=== PATIENT | male | born 1950 | race Caucasian/White ===

== ENCOUNTER 2021-07-11 04:44 | Inpatient (IN) | payer OTHER ==
[2021-07-11 04:53] VITALS: BMI 27.2
[2021-07-11 06:25] LABS: BLOOD UREA NITROGEN 27.5 mg/dL (7-18); CALCIUM 9.1 mg/dL (8.5-10.1)
[2021-07-11 06:26] LABS: ALBUMIN 3.8 g/dl (3.4-5.0)
[2021-07-11 06:28] LABS: CREATININE 1.1 mg/dL (0.55-1.3)
[2021-07-11 06:30] LABS: BILIRUBIN,TOTAL 0.4 mg/dL (0.2-1); TOT PROT 7.3 g/dl (6.4-8.2)
[2021-07-11 06:31] LABS: BASO % 0.9 % (0-2.0); EOS % 4.2 % (0-4.5); HEMATOCRIT 42.2 % (35.4-49); HEMOGLOBIN 13.7 GM/dL (11.7-16.9); LYMPH % 18.4 % (8-40); MCH 25.5 pg (25.7-33.7); MCHC 32.5 g/dl (32.0-35.9); MEAN CELL VOLUME 78.5 fl (80-96); MONO % 10.4 % (3.8-10.2); NEUT % 66.1 % (42.8-82.8); PLATELET COUNT 195 10^3/uL (134-434); RBC 5.38 M/mm3 (4.00-5.60); RDW 14.9 % (11.9-15.9); WHITE BLOOD COUNT 7.1 K/mm3 (4.0-10.0)
[2021-07-11] MEDS ORDERED: SODIUM CHLORIDE 1,000 ML IV ONE (06:51)
[2021-07-11] MEDS ORDERED: ASPIRIN 325 MG TABLET PO ONE (11:19)
[2021-07-11] MEDS ORDERED: ASPIRIN 325 MG TABLET ONE (11:32)
[2021-07-11] MEDS ORDERED: METOPROLOL TARTRATE 25 MG TABLET (FP) PO SCH (14:45)
[2021-07-11] MEDS ORDERED: ENOXAPARIN NA (PORCINE) 40 MG/0.4 ML DISP.SYRIN SQ SCH (15:15)
[2021-07-11] MEDS ORDERED: CLOPIDOGREL BISULFATE 75 MG TABLET (FP) PO ONE (17:28)
[2021-07-11] MEDS: ENOXAPARIN NA (PORCINE) 100 MG/1 ML DISP.SYRIN SQ SCH (20:24)
[2021-07-11] MEDS: ATORVASTATIN CA 40 MG TABLET (FP) PO SCH (21:24)
[2021-07-11] MEDS ORDERED: ATORVASTATIN CA 10 MG TABLET (FP) PO SCH (22:00)
[2021-07-12] MEDS: ENOXAPARIN NA (PORCINE) 100 MG/1 ML DISP.SYRIN SQ SCH ×2 (08:25→21:50)
[2021-07-12 08:32] LABS: ALBUMIN 3.7 g/dl (3.4-5.0); BILIRUBIN,TOTAL 0.7 mg/dl (0.2-1); CALCIUM 8.9 mg/dl (8.5-10); CREATININE 1.1 mg/dl (0.55-1.3); MAGNESIUM 1.8 mg/dL (1.8-2.4); TOT PROT 6.8 g/dl (6.4-8.2)
[2021-07-12 08:39] LABS: HEMATOCRIT 42.4 % (35.4-49); HEMOGLOBIN 14.3 G/dL (11.7-16.9); MCH 26.2 pg (25.7-33.7); MCHC 33.6 g/dl (32.0-35.9); MEAN CELL VOLUME 78.1 fl (80-96); MEAN PLT VOLUME 9.2 fl (7.5-11.1); PLATELET COUNT 194.2 10^3/uL (134-434); RBC 5.43 10^6/uL (4.00-5.60); RDW 15.4 % (11.9-15.9); WHITE BLOOD COUNT 9.4 10^3/uL (4.0-10.8)
[2021-07-12] MEDS: ASPIRIN 81 MG CHEWABLE TABLETS PO SCH (09:29)
[2021-07-12] MEDS: CLOPIDOGREL BISULFATE 75 MG TABLET (FP) PO SCH (09:29)
[2021-07-12] MEDS: metoPROLOL SUCCINATE 25 MG TAB.SR.24H (FP) PO SCH (09:29)
[2021-07-12] MEDS: RAMIPRIL 2.5 MG CAPSULE PO SCH (10:41)
[2021-07-12 11:13] LABS: N-TERMINAL BNP 291.5 pg/ml (5-125)
[2021-07-12] MEDS: ATORVASTATIN CA 40 MG TABLET (FP) PO SCH (21:50)
[2021-07-13] MEDS: RAMIPRIL 2.5 MG CAPSULE PO SCH (09:34)
[2021-07-13] MEDS: ENOXAPARIN NA (PORCINE) 100 MG/1 ML DISP.SYRIN SQ SCH (09:34)
[2021-07-13] MEDS ORDERED: REGADENOSON 0.4 MG/5 ML PRE-FILLED SYRINGE IVPUSH ONE ×2 (11:00→12:37)
[2021-07-13] MEDS: metoPROLOL SUCCINATE 25 MG TAB.SR.24H (FP) PO SCH (14:32)
[2021-07-13] MEDS: ASPIRIN 81 MG CHEWABLE TABLETS PO SCH (14:32)
[2021-07-13] MEDS: CLOPIDOGREL BISULFATE 75 MG TABLET (FP) PO SCH (14:32)
[2021-07-13] MEDS ORDERED: INSULIN SLIDING SCALE (NOVOLOG) 1 VIAL SQ SCH (16:30)
[2021-07-13 18:06] VITALS: BP 136/77; PULSE 75; TEMP 98.3
[2021-07-14] MEDS ORDERED: ENOXAPARIN NA (PORCINE) 40 MG/0.4 ML DISP.SYRIN SQ SCH (10:00)
== END 2021-07-13 18:45 | disposition home or self-care (01) | DRG 282 ==
LOC: FER 04:44 → FM/S 12:02 → OBSVTOIN 07-12 08:11 → J4W 07-12 16:00
PROVIDERS: ADMIT Internal Medicine; ATTEND Internal Medicine
DX: I21.4 Non-ST elevation (NSTEMI) myocardial infarction (principal); I10 Essential (primary) hypertension; I16.0 Hypertensive urgency; E66.9 Obesity, unspecified; E78.2 Mixed hyperlipidemia; I25.5 Ischemic cardiomyopathy; I25.10 Atherosclerotic heart disease of native coronary artery without angina pectoris; E78.00 Pure hypercholesterolemia, unspecified; E78.5 Hyperlipidemia, unspecified
CPT/HCPCS: 36415; 71045-TC-FY; 78452-TC; 80053; 80061; 82550; 82553; 83036; 83735; 83880; 84443; 84484; 85025; 93005; 93017; 93306-TC; 99285-25; A9502; C9803-CS; G0378; J2785; U0003; U0005